=== PATIENT | female | born 1945 | race American Indian/Alaskan Native ===

== ENCOUNTER 2017-12-24 19:42 | Emergency (ER) | payer MEDICARE ==
[2017-12-24 20:48] LABS: Basophils % (Auto) 0.3 % (0.0-1.8); Eosinophils # (Auto) 0.3 K/mm3 (0.0-0.4); Eosinophils % (Auto) 3.4 % (0.0-4.3); Hematocrit 35.8 % (30.3-42.9); Hemoglobin 12.1 gm/dl (10.1-14.3); Lymphocytes # (Auto) 3.4 K/mm3 (1.2-5.4); Lymphocytes % (Auto) 38.7 % (13.4-35.0); Mean Corpuscular HGB Conc 34 % (30-34); Mean Corpuscular Hemoglobin 31 pg (28-32); Mean Corpuscular Volume 91 fl (79-97); Monocytes # (Auto) 0.6 K/mm3 (0.0-0.8); Monocytes % (Auto) 7.3 % (0.0-7.3); Platelet Count 156 K/mm3 (140-440); Red Blood Count 3.96 M/mm3 (3.65-5.03); Red Cell Distribution Width 13.2 % (13.2-15.2)
[2017-12-24 21:06] LABS: BUN/Creatinine Ratio 23; Blood Urea Nitrogen 16 mg/dL (7-17); Calcium 8.9 mg/dL (8.4-10.2); Hemolysis Index 6
--- NOTE | 2017-12-24 21:27 | XRay Report ---
FINAL REPORT PROCEDURE: XR CHEST ROUTINE 2V TECHNIQUE: PA and lateral chest radiographs were obtained. CPT 78812 HISTORY: Shortness of breath COMPARISON: No prior studies are available for comparison. FINDINGS: Heart: Normal. Mediastinum/Vessels: Normal. Lungs/Pleural space: Normal. Bony thorax: No acute osseous abnormality. Other: IMPRESSION: Normal examination.
--- NOTE | 2017-12-25 06:59 | Emergency Department Report ---
ED Shortness of Breath HPI - General Chief Complaint: Dyspnea/Respdistress Stated Complaint: COUGH,CONGESTION,FEVER,SOB Time Seen by Provider: 12/25/17 06:44 Source: patient Mode of arrival: Ambulatory Limitations: No Limitations - History of Present Illness Complaint: shortness of breath, cough -: Gradual, week(s) (1 week) Severity: severe Quality: aching Improves With: nothing Worsens With: coughing Known History Of: other (smoker) Associated Symptoms: chest pain, fever, cough, sputum production (yellowish to greenish), other (acid reflux. She does have history of acid reflux. She is also a smoker.) - Related Data Home Oxygen Therapy: No Previous Rx's Medication Instructions Recorded Last Taken Type Ciprofloxacin HCl [Cipro] 500 mg PO Q12HR 10 Days tablet 12/25/17 Unknown Rx Omeprazole 40 mg PO QDAY #28 capsule. 12/25/17 Unknown Rx Allergies Allergy/AdvReac Type Severity Reaction Status Date / Time aspirin AdvReac Severe NUMBNESS Unverified 08/08/14 08:33 Penicillins AdvReac Severe CRAZY Unverified 08/08/14 08:33 ED Review of Systems ROS: Stated complaint: COUGH,CONGESTION,FEVER,SOB Other details as noted in HPI Constitutional: fever (last time on Monday). denies: chills Eyes: denies: eye pain, eye discharge, vision change ENT: denies: ear pain, throat pain Respiratory: cough, shortness of breath, SOB with exertion, SOB at rest. denies : wheezing Cardiovascular: chest pain. denies: palpitations Endocrine: no symptoms reported Gastrointestinal: denies: abdominal pain, nausea, diarrhea Genitourinary: denies: urgency, dysuria, discharge Musculoskeletal: denies: back pain, joint swelling, arthralgia Skin: denies: rash, lesions Neurological: denies: headache, weakness, paresthesias Psychiatric: denies: anxiety, depression Hematological/Lymphatic: denies: easy bleeding, easy bruising ED Past Medical Hx - Past Medical History Previous Medical History?: Yes Hx GERD: Yes Additional medical history: Acid reflux - Surgical History Past Surgical History?: Yes - Social History Smoking Status: Current Every Day Smoker - Medications Home Medications: Home Medications Medication Instructions Recorded Confirmed Last Taken Type Ciprofloxacin HCl [Cipro] 500 mg PO Q12HR 10 Days tablet 12/25/17 Unknown Rx Omeprazole 40 mg PO QDAY #28 capsule. 12/25/17 Unknown Rx ED Physical Exam - General Limitations: No Limitations General appearance: alert, in no apparent distress - Head Head exam: Present: atraumatic, normocephalic - Eye Eye exam: Present: normal appearance - ENT ENT exam: Present: normal orophraynx (but congested), mucous membranes moist - Neck Neck exam: Present: normal inspection - Respiratory Respiratory exam: Present: normal lung sounds bilaterally. Absent: respiratory distress - Cardiovascular Cardiovascular Exam: Present: regular rate, normal rhythm. Absent: systolic murmur, diastolic murmur, rubs, gallop - GI/Abdominal GI/Abdominal exam: Present: soft, normal bowel sounds - Extremities Exam Extremities exam: Present: normal inspection - Back Exam Back exam: Present: normal inspection - Neurological Exam Neurological exam: Present: alert, oriented X3 - Psychiatric Psychiatric exam: Present: normal affect, normal mood - Skin Skin exam: Present: warm, dry, intact, normal color. Absent: rash ED Course Vital Signs 12/24/17 12/25/17 12/25/17 20:19 03:36 03:37 Temperature 97.7 F 98.4 F Pulse Rate 72 70 Respiratory 17 20 20 Rate Blood Pressure 113/55 Blood Pressure 111/61 [Left] O2 Sat by Pulse 100 100 100 Oximetry 12/25/17 12/25/17 12/25/17 04:00 04:15 04:16 Temperature Pulse Rate 65 53 L 65 Respiratory 11 L 15 Rate Blood Pressure 108/65 109/61 Blood Pressure [Left] O2 Sat by Pulse 100 100 Oximetry 12/25/17 12/25/17 12/25/17 04:30 04:45 05:00 Temperature Pulse Rate 83 53 L 59 L Respiratory 14 11 L 10 L Rate Blood Pressure 105/76 113/58 113/58 Blood Pressure [Left] O2 Sat by Pulse 100 100 100 Oximetry 12/25/17 12/25/17 05:15 05:30 Temperature Pulse Rate 57 L 57 L Respiratory 13 17 Rate Blood Pressure 103/59 109/56 Blood Pressure [Left] O2 Sat by Pulse 100 100 Oximetry ED Medical Decision Making - Lab Data Result diagrams: 12/24/17 20:31 12/24/17 20:31 Critical care attestation.: If time is entered above; I have spent that time in minutes in the direct care of this critically ill patient, excluding procedure time. ED Disposition Clinical Impression: Acute bronchitis Qualifiers: Bronchitis organism: unspecified organism Qualified Code(s): J20.9 - Acute bronchitis, unspecified Disposition: DC-01 TO HOME OR SELFCARE Is pt being admited?: No Does the pt Need Aspirin: No Condition: Stable Instructions: Acute Bronchitis (ED) Prescriptions: Ciprofloxacin HCl [Cipro] 500 mg PO Q12HR 10 Days tablet Omeprazole 40 mg PO QDAY #28 capsule. Referrals: PRIMARY CARE, [Primary Care Provider] - 3-5 Days Forms: Work/School Release Form(ED) Time of Disposition: 07:00
[2017-12-25 07:12] VITALS: BP 118/48
== END 2017-12-25 07:22 | disposition home or self-care (01) ==
LOC: ED 19:42
DX: J20.9 Acute bronchitis, unspecified (principal); K21.9 Gastro-esophageal reflux disease without esophagitis; F17.200 Nicotine dependence, unspecified, uncomplicated
CPT/HCPCS: 36415; 71046; 80048; 84484; 85025; 93005; 93010